=== PATIENT | female | born 1985 | race Caucasian/White ===

== ENCOUNTER 2024-09-15 13:32 | Outpatient (CLI) | payer OTHER, SELFPAY ==
--- NOTE | ~2024-09-15 | MR_ITS ---
EXAMINATION: MR hand RT wo con DATE: 09/15/2024 14:29 INDICATION: Right hand injury with persistent pain TECHNIQUE: Magnetic resonance imaging (MRI) of the right hand was performed without intravenous contr ast. Sequences included axial T1-weighted FSE, axial T2-weighted FS FSE, coronal T1-weighted FSE, cor onal T2-weighted FS FSE, sagittal T1-weighted FSE and sagittal T2-weighted FS FSE. COMPARISON: None. FINDINGS: Bone alignment is normal. Cystic-appearing 6-7 mm homogeneously fluid signal intensity T2 hyperintens e lesion at the ulnar side of the head of the third metacarpal underlying the footplate of the ulnar collateral ligament complex without a definitive overlying cortical interruption. There are couple ad ditional small foci of increased T2 signal at the dorsal base of the first proximal phalanx underlyin g the insertion of the extensor pollicis brevis tendon and at the palmar/ulnar aspect of the head of the first metacarpal underlying the footplate of the ulnar collateral ligament complex. Bone marrow s ignal is otherwise normal throughout with no reactive edema or fracture. The collateral ligament comp navin at the metacarpophalangeal and interphalangeal joints are normal. The visualized portions of the flexor and extensor tendons as well as intrinsic musculature of the hand are normal. IMPRESSION: 1. Nonspecific T2 hyperintense lesions at the heads of the first and third metacarpals and at the bas e of the first proximal phalanx each underlying the site of ligamentous or tendinous insertion with d ifferential including sequela of low-grade avulsive trauma, degenerative osteoarthritis, degenerative enthesopathy or inflammatory enthesitis although the associated joint spaces, ligaments and tendons remain normal in appearance. Reviewed, dictated and finalized at location B. ENT COUNSELOR IMPRESSION: 1. Nonspecific T2 hyperintense lesions at the heads of the first and third meta carpals and at the base of the first proximal phalanx each underlying the site of ligamentous or tendinous insertion with differential including sequela of lo w-grade avulsive trauma, degenerative osteoarthritis, degenerative enthesopathy or inflammatory enthesitis although the associated joint spaces, ligaments and tendons remain normal in appearance.
== END 2024-09-15 13:33 | disposition home or self-care (01) ==
LOC: ANHIMG 13:33
DX: S69.81XA Other specified injuries of right wrist, hand and finger(s), initial encounter (principal); Y93.64 Activity, baseball; M89.9 Disorder of bone, unspecified
CPT/HCPCS: 73218

== ENCOUNTER 2025-01-24 13:44 | Outpatient (CLI) | payer OTHER, SELFPAY ==
--- NOTE | 2025-01-24 14:15 | NEURO_ITS ---
Impression: # Complains of numbness of upper extremities. ? # Mild evolving bilateral Carpal Tunnel Syndrome. ? # No ulnar neuropathy. ? # Normal needle/EMG exam. Nerve Conduction Studies Anti Sensory Summary Table ?Stim Site NR Peak (ms) P-T Amp (?V) Site1 Site2 Delta-P (ms) Dist (cm) Zohaib (m/s) Left Median Anti Sensory (2-3nd Digit) Wrist ? 3.7 61.3 Wrist 2-3nd Digit 3.7 14.0 38 Wrist ? 3.8 36.2 Wrist 2-3nd Digit 3.7 14.0 38 Right Median Anti Sensory (2-3nd Digit) Wrist ? 3.9 45.0 Wrist 2-3nd Digit 3.9 14.0 36 Wrist ? 4.0 53.1 Wrist 2-3nd Digit 3.9 14.0 36 Left Radial Anti Sensory (Base 1st Digit) Wrist ? 2.0 39.5 Wrist Base 1st Digit 2.0 0.0 Right Radial Anti Sensory (Base 1st Digit) Wrist ? 2.6 19.4 Wrist Base 1st Digit 2.6 0.0 Left Ulnar Anti Sensory (5th Digit) Wrist ? 2.6 163.7 Wrist 5th Digit 2.6 14.0 54 Right Ulnar Anti Sensory (5th Digit) Wrist ? 2.5 32.0 Wrist 5th Digit 2.5 14.0 56 Motor Summary Table ?Stim Site NR Onset (ms) O-P Amp (mV) Site1 Site2 Delta-0 (ms) Dist (cm) Zohaib (m/s) Left Median Motor (Abd Poll Brev) Wrist ? 4.2 6.0 Elbow Wrist 4.9 28.0 57 Elbow ? 9.1 6.0 Right Median Motor (Abd Poll Brev) Wrist ? 4.1 5.4 Elbow Wrist 4.4 27.0 61 Elbow ? 8.5 5.7 Left Ulnar Motor (Abd Dig Minimi) Wrist ? 2.7 7.2 A Elbow Wrist 4.6 27.0 59 A Elbow ? 7.3 5.4 B Elbow Wrist 4.0 23.0 58 B Elbow ? 6.7 3.7 Right Ulnar Motor (Abd Dig Minimi) Wrist ? 3.0 5.5 A Elbow Wrist 5.1 29.0 57 A Elbow ? 8.1 4.8 B Elbow Wrist 3.5 20.0 57 B Elbow ? 6.5 2.9 F Wave Studies ?NR F-Lat (ms) L-R F-Lat (ms) Left Median (Mrkrs) (Abd Poll Brev) ? 27.48 0.00 Right Median (Mrkrs) (Abd Poll Brev) ? 27.48 0.00 Left Ulnar (Mrkrs) (Abd Dig Min) ? 28.19 0.00 Right Ulnar (Mrkrs) (Abd Dig Min) ? 28.19 0.00 EMG ?Side Muscle Nerve Root Ins Act Fibs Amp Dur Recrt Comment Right 1stDorInt Ulnar C8-T1 Nml Nml Nml Nml Nml Right Ext Indicis Radial (Post Int) C7-8 Nml Nml Nml Nml Nml Right Ext Digitorum Radial (Post Int) C7-8 Nml Nml Nml Nml Nml Right BrachioRad Radial C5-6 Nml Nml Nml Nml Nml Right PronatorTeres Median C6-7 Nml Nml Nml Nml Nml Right Abd Poll Brev Median C8-T1 Nml Nml Nml Nml Nml Right ABD Dig Min Ulnar C8-T1 Nml Nml Nml Nml Nml Right FlexPolLong Median (Ant Int) C7-8 Nml Nml Nml Nml Nml Right Abd Poll Long Radial (Post Int) C7-8 Nml Nml Nml Nml Nml Left 1stDorInt Ulnar C8-T1 Nml Nml Nml Nml Nml Left Ext Indicis Radial (Post Int) C7-8 Nml Nml Nml Nml Nml Left Ext Digitorum Radial (Post Int) C7-8 Nml Nml Nml Nml Nml Left BrachioRad Radial C5-6 Nml Nml Nml Nml Nml Left PronatorTeres Median C6-7 Nml Nml Nml Nml Nml Left Abd Poll Brev Median C8-T1 Nml Nml Nml Nml Nml Left ABD Dig Min Ulnar C8-T1 Nml Nml Nml Nml Nml MTDD
--- OUTSIDE RECORDS SUMMARY | 2025-01-24 16:00 | XMS_ITS | Clinical Summary ---
Author Organization [facility] Address [address] [place] [id number] Care Team Providers Care Hand Developer Name Role Phone Bernice Gaines MD, Colby Primary Care Provider Encounters Date Type Department Care Team Description 10/31/2024 7:03 AM [facility] - 10/31/2024 11:59 PM [facility] Hospital Encounter [facility] [address] [place], [place] [id number] Colby Queen MD Discharge Disposition: Home or Self Care (Routine Discharge) 10/31/2024 Travel from Last 3 Months Family History Medical History Relation Comments Breast Cancer Mother early 50s - unsu re of exact, mastectomy, dx with bone cancer and passed at 56 Relation Status Comments Mother Social History Tobacco Use Types Packs/Day Years Used Date Smoking Tobacco: Never Assessed Comments Unknown Sex and Gender Information Value Date Recorded Sex Assigned at Not on file Legal Sex Female 1:22 PM CDT Gender Identity Not on file Sexual Orientation Not on file Plan of Treatment Health Maintenance Due Date Last Done Comments Cervical Cancer Screening Pa p Smear (Age 30 to 64) Every 3 Years 1984 Annual Physical 1987 Hepatitis C 2002 DTaP, Tdap and Td Vaccines ( 1 - Tdap) 2003 Hepatitis B Vaccines (1 of 3 - 19+ 3-dose series) 2003 Cervical Cancer Screening Pa p with HPV Testing (Age 30 to 64) Every 5 Years 2014 Cervical Cancer Screening with HPV 2014 COVID-19 Vaccine (2023-2 5 season) 2024 Influenza Adult (#1) 2024 Mammogram Screening 10/31/2026 10/31/2024 HPV Vaccines Aged Out No longer eligi ble based on patient's age to complete this topic Meningococcal B Vaccine Aged Out No l onger eligible based on patient's age to complete this topic Meningococcal Vaccine Aged Out No solomon jaiden eligible based on patient's age to complete this topic Pneumococcal Vaccine: Pediat rics (0 to 5 Years) and At-Risk Patients (6 to 64 Years) Aged Out No longer eligi ble based on patient's age to complete this topic RSV Immunizations Under 20 Months Aged Out No longer eligible based on patient's age to complete this topic Procedures Procedure Name Priority Date/Time Associated Diagnosis Comments MG SCREENING W HARMONY MILO DIGI Routine 10/31/2024 8:06 AM [facility] Encounter for screening for malignant neoplasm of breast from Last 3 Months Results * MG SCREENING W HARMONY MILO DIGI (10/31/2024 8:06 AM [facility]) Anatomical Region Laterality Modality Breast Bilateral Mammography 11/01/2024 11:0 8 AM [facility] Impressions 11/01/2024 11:08 AM [facility] =====IMPRESSION:===== No mammographic findings suggestive of malignancy ASSESSMENT: ACR BI-RADS 2 - BENIGN FINDING(S) Recommendation: 1: Routine Screening Bilateral COMMENTS: Ordered By: COLBY QUEEN V Interpreted By: Timothy Berry MD, 11/01/2024 11:08 AM Narrative 11/01/2024 11:08 AM [facility] [address] [place] [address] EXAMINATION: Digital bilateral screening mammogram with 3-D tomosynthesis EXAM DATE/TIME: 10/31/2024 7:53 AM REASON FOR EXAM: Screening COMPARISON: None. Baseline study. TECHNIQUE: Digital screening mammography of both breasts was performed in addition to 3-D Tomosynthesis technique. This study was read with the assistance of a computer-aided detection system. TISSUE DENSITY: The breasts are heterogeneously dense, which may obscure small masses. FINDINGS: No suspicious masses, malignant appearing calcifications, skin thickening or other abnormalities are present. Colby Gaines MD MAMMO Final Result from Last 3 Months Insurance [facility] [employer] Care Teams Hand Developer Relationship Specialty Start Date End Date Colby Queen MD [facility] [address] [place] [address] PCP - General INTERNAL MEDICINE 10/31/24
== END 2025-01-24 13:45 | disposition home or self-care (01) ==
PROVIDERS: Visit Provider Physician Assistant
DX: R20.2 Paresthesia of skin (principal); G56.03 Carpal tunnel syndrome, bilateral upper limbs
CPT/HCPCS: 95886; 95911